=== PATIENT | male | born 1970 | race Caucasian/White ===

== ENCOUNTER → 2017-08-12 | Outpatient (CLI) | payer OTHER ==
[~2017-08-12] MED LIST: AMLO10 PO; ATEN25 PO; Ativan1 MG PO; CALMAGZIN PO; CLON.2 PO; HYDCHL25 PO; INDO50 PO; K-Dur 20 meq T20 MEQ PO; LEVSOD50; LEVSOD50 PO; METO100ER PO; METO25ER; MINO100 PO; MINO50 PO; MITIGARE0.6 MG PO; PENVK500 PO; POTCHL20ER PO; Percocet 7.5-31 EACH PO; SERT100 PO; SERT20L; SPIR25 PO
== END | disposition home or self-care (01) ==
LOC: LAB 08:00 → LAB SHORT 12:05
DX: S01.80XA Unspecified open wound of other part of head, initial encounter (principal); S81.802A Unspecified open wound, left lower leg, initial encounter
CPT/HCPCS: 87070; 87205

== ENCOUNTER 2021-08-13 09:38 | Day surgery (SDC) | payer OTHER | END 2021-08-13 12:50 | disposition home or self-care (01) | LOC: ORSCSDS 09:38 | PROVIDERS: Surgery | PROC: 0DBM8ZX Excision of Descending Colon, Via Natural or Artificial Opening Endoscopic, Diagnostic (ICD-10-PCS; principal; 2021-08-13 11:00) | PROC: 0DBL8ZX Excision of Transverse Colon, Via Natural or Artificial Opening Endoscopic, Diagnostic (ICD-10-PCS; principal; 2021-08-13 11:00) | DX: Z12.11 Encounter for screening for malignant neoplasm of colon (principal); Z86.010 Personal history of colon polyps; Z80.0 Family history of malignant neoplasm of digestive organs; D12.3 Benign neoplasm of transverse colon; D12.4 Benign neoplasm of descending colon; E03.9 Hypothyroidism, unspecified; E78.5 Hyperlipidemia, unspecified; Z79.899 Other long term (current) drug therapy | CPT/HCPCS: 88305; J2704; J7120 ==

== ENCOUNTER 2021-10-09 11:43 | Inpatient (IN) | payer OTHER ==
[~2021-10-09] VITALS: Ht 175.3 cm; Wt 89.6 kg
[2021-10-09] MEDS ORDERED: Pravastatin Sod40 MG PO (12:13)
[2021-10-09 12:16] LABS: BASOPHILS ABSOLUTE AUTO 0.06 K/mm3 (0.00-0.23); BASOPHILS PERCENT AUTO 1 % (0-2); EOSINOPHILS ABSOLUTE AUTO 0.08 K/mm3 (0.00-0.68); EOSINOPHILS PERCENT AUTO 1 % (0-6); Hematocrit 43.2 % (37.0-53.0); Hemoglobin 15.2 g/dL (13.5-17.5); IMMATURE GRAN ABSOLUTE AUTO 0.03 K/mm3 (0.00-0.10); IMMATURE GRAN PERCENT AUTO 0 % (0-1); LYMPHOCYTES ABSOLUTE AUTO 2.71 K/mm3 (0.84-5.20); LYMPHOCYTES PERCENT AUTO 38 % (21-46); MONOCYTES ABSOLUTE AUTO 0.62 K/mm3 (0.16-1.47); MONOCYTES PERCENT AUTO 9 % (4-13); Mean Corpuscular HGB 31.7 pg (26.0-34.0); Mean Corpuscular HGB Conc 35.2 g/dL (31.5-36.5); Mean Corpuscular Volume 90 fL (80-100); Mean Platelet Volume 9.1 fL (9.1-12.4); NEUTROPHILS ABSOLUTE AUTO 3.63 K/mm3 (1.96-9.15); NEUTROPHILS PERCENT AUTO 51 % (41-73); Platelet Count 342 K/mm3 (150-400); RDW Coefficient Variation 12.7 % (11.7-14.2); RDW Standard Deviation 41.6 fL (35.1-46.3); Red Blood Cell Count 4.79 M/mm3 (4.30-5.90); White Blood Cell Count 7.13 K/mm3 (4.00-11.30)
[2021-10-09 12:29] LABS: Albumin, Blood 4.1 g/dL (3.4-5.0); Albumin/Globulin Ratio 1.1 (0.8-1.8); Bilirubin, Total 0.3 mg/dL (0.1-1.0); Bun/Creatinine Ratio 9.8 (12.0-20.0); Calcium, Blood 8.8 mg/dL (8.5-10.1); Creatinine, Blood 0.71 mg/dL (0.60-1.20); Globulin, Blood 3.9 g/dL (2.2-4.0); Potassium, Blood 3.8 mmol/L (3.5-5.5)
[2021-10-09 12:51] LABS: Influenza A, PCR NEGATIVE (NEGATIVE); Influenza B, PCR NEGATIVE (NEGATIVE); Resp Syncytial Virus, PCR NEGATIVE (NEGATIVE); SARS-Cov-2 (COVID-19) PCR, MMC NEGATIVE (NEGATIVE)
[2021-10-09 13:49] LABS: BASOPHILS ABSOLUTE AUTO 0.04 K/mm3 (0.00-0.23); BASOPHILS PERCENT AUTO 1 % (0-2); EOSINOPHILS ABSOLUTE AUTO 0.08 K/mm3 (0.00-0.68); EOSINOPHILS PERCENT AUTO 1 % (0-6); IMMATURE GRAN ABSOLUTE AUTO 0.03 K/mm3 (0.00-0.10); IMMATURE GRAN PERCENT AUTO 0 % (0-1); LYMPHOCYTES ABSOLUTE AUTO 2.46 K/mm3 (0.84-5.20); LYMPHOCYTES PERCENT AUTO 35 % (21-46); MONOCYTES ABSOLUTE AUTO 0.63 K/mm3 (0.16-1.47); MONOCYTES PERCENT AUTO 9 % (4-13); Mean Corpuscular HGB 31.7 pg (26.0-34.0); Mean Corpuscular HGB Conc 35.6 g/dL (31.5-36.5); Mean Corpuscular Volume 89 fL (80-100); Mean Platelet Volume 9.3 fL (9.1-12.4); NEUTROPHILS ABSOLUTE AUTO 3.88 K/mm3 (1.96-9.15); NEUTROPHILS PERCENT AUTO 55 % (41-73); Platelet Count 328 K/mm3 (150-400); RDW Coefficient Variation 12.7 % (11.7-14.2); RDW Standard Deviation 41.5 fL (35.1-46.3); Red Blood Cell Count 5.04 M/mm3 (4.30-5.90); White Blood Cell Count 7.12 K/mm3 (4.00-11.30)
[2021-10-09 14:17] LABS: CPK Creatine Kinase 158 U/L (39-308)
[2021-10-09 14:39] LABS: Alanine Aminotransfer (ALT/SGP 37 U/L (12-78); Albumin, Blood 4.4 g/dL (3.4-5.0); Albumin/Globulin Ratio 1.1 (0.8-1.8); Alk Phos 78 U/L (50-136); Anion Gap 13 mmol/L (6-16); Aspartate Aminotrans (AST/SGOT 31 U/L (12-37); Bilirubin, Total 0.3 mg/dL (0.1-1.0); Blood Urea Nitrogen 6 mg/dL (8-24); Bun/Creatinine Ratio 8.7 (12.0-20.0); CO2, Blood 22 mmol/L (21-32); Calcium, Blood 9.1 mg/dL (8.5-10.1); Chloride, Blood 101 mmol/L (98-108); Creatine Kinase MB <1.0 ng/mL (0.0-3.6); Creatine Kinase MB Index Unable to Calculate (0.0-4.0); Creatinine, Blood 0.69 mg/dL (0.60-1.20); Globulin, Blood 4.1 g/dL (2.2-4.0); Glomerular Filtration Rate 112 (60-); Glucose, Blood 234 mg/dL (70-99); Potassium, Blood 3.6 mmol/L (3.5-5.5); Sodium, Blood 136 mmol/L (136-145); Total Protein, Blood 8.5 g/dL (6.4-8.2)
--- NOTE | 2021-10-09 19:00 | NUR ---
Assumed care. Report received from sea RN. Pt resting in bed ATT. On room air, IV access in R/ac and L/hand. Pt denies chest pain/SOB/nausea. No acute needs, will continue to monitor.
--- NOTE | 2021-10-09 19:10 | NUR ---
SUMMARY NEURO: WNL GI: WNL. HX UMBILICAL HERNIA : WNL LUNGS: WNL CARDIAC: STENT PLACED IN DISTAL RCA. PT HAD COMPLAINTS OF SOB AND CLAMMINESS DURING POST OP EKG. DR HERNANDEZ TO BEDSIDE, EKG NOTED TO HAVE ST ELEVATION. SUBLINGUAL NITRO GIVEN, 5MG IV METOPROLOL PUSH GIVEN, REPEAT EKG. 200ML NS FLUID BOLUS GIVEN FLLOWED [id number]/ HR INFUSION, REPEATED EKG. AGROSTAT BOLUS GIVEN FLLOWED BY INFUSION, REPEATED EKG. PT STATES SYMPTOMS HAVE IMPROVED SINCE INTERVENTION, DECREASED IN ST ELEVATION NOTED ON REPEATED EKG'S. TROPONINS STILL TRENDING UP. TR BAND IN PLACE DUE TO INCREASED BLEEDING RISK. SKIN; WNL
[2021-10-10 03:45] LABS: BASOPHILS ABSOLUTE AUTO 0.03 K/mm3 (0.00-0.23); BASOPHILS PERCENT AUTO 0 % (0-2); EOSINOPHILS ABSOLUTE AUTO 0.03 K/mm3 (0.00-0.68); EOSINOPHILS PERCENT AUTO 0 % (0-6); Hematocrit 39.2 % (37.0-53.0); Hemoglobin 13.7 g/dL (13.5-17.5); IMMATURE GRAN ABSOLUTE AUTO 0.03 K/mm3 (0.00-0.10); IMMATURE GRAN PERCENT AUTO 0 % (0-1); LYMPHOCYTES ABSOLUTE AUTO 1.69 K/mm3 (0.84-5.20); LYMPHOCYTES PERCENT AUTO 21 % (21-46); MONOCYTES ABSOLUTE AUTO 0.75 K/mm3 (0.16-1.47); MONOCYTES PERCENT AUTO 10 % (4-13); Mean Corpuscular HGB 31.1 pg (26.0-34.0); Mean Corpuscular HGB Conc 34.9 g/dL (31.5-36.5); Mean Corpuscular Volume 89 fL (80-100); Mean Platelet Volume 9.1 fL (9.1-12.4); NEUTROPHILS ABSOLUTE AUTO 5.35 K/mm3 (1.96-9.15); NEUTROPHILS PERCENT AUTO 68 % (41-73); Platelet Count 215 K/mm3 (150-400); RDW Coefficient Variation 12.7 % (11.7-14.2); RDW Standard Deviation 41.5 fL (35.1-46.3); White Blood Cell Count 7.88 K/mm3 (4.00-11.30)
[2021-10-10 04:03] LABS: Bun/Creatinine Ratio 7.7 (12.0-20.0); Calcium, Blood 8.3 mg/dL (8.5-10.1); Creatinine, Blood 0.65 mg/dL (0.60-1.20); Potassium, Blood 3.7 mmol/L (3.5-5.5)
--- NOTE | 2021-10-10 06:26 | NUR ---
Shift summary. Pt rested in bed throughout shift. No acute changes overnight. EKG sent to Dr. Aceevdo per nursing order. Aggrastat running at 16.1 ml/hr. Vital signs stable throughout shift, see assessment for further details. Will continue to monitor and report off to dayshift RN.
--- NOTE | 2021-10-10 18:20 | NUR ---
SUMMARY AGROSTAT WAS TURNED OFF AT 10AM. NO SWELLING, OR SIGNS OF BLEEDING AT ACCESS SITE. PT UP AND WALKING AROUND UNIT WITHOUT SOB OR CHEST PAIN.
--- NOTE | 2021-10-10 19:00 | NUR ---
Assumed care. Report received from dayshift RN. Pt resting in bed ATT, at bedside. Alert and oriented, on room air, vs stable. Pt denies chest pain/SOB/nausea. Will continue to monitor.
[2021-10-11 03:26] LABS: BASOPHILS ABSOLUTE AUTO 0.03 K/mm3 (0.00-0.23); BASOPHILS PERCENT AUTO 0 % (0-2); EOSINOPHILS ABSOLUTE AUTO 0.11 K/mm3 (0.00-0.68); EOSINOPHILS PERCENT AUTO 2 % (0-6); Hematocrit 39.3 % (37.0-53.0); Hemoglobin 13.7 g/dL (13.5-17.5); IMMATURE GRAN ABSOLUTE AUTO 0.02 K/mm3 (0.00-0.10); IMMATURE GRAN PERCENT AUTO 0 % (0-1); LYMPHOCYTES ABSOLUTE AUTO 1.47 K/mm3 (0.84-5.20); LYMPHOCYTES PERCENT AUTO 21 % (21-46); MONOCYTES ABSOLUTE AUTO 0.66 K/mm3 (0.16-1.47); MONOCYTES PERCENT AUTO 10 % (4-13); Mean Corpuscular HGB 31.7 pg (26.0-34.0); Mean Corpuscular HGB Conc 34.9 g/dL (31.5-36.5); Mean Corpuscular Volume 91 fL (80-100); Mean Platelet Volume 9.2 fL (9.1-12.4); NEUTROPHILS PERCENT AUTO 67 % (41-73); Platelet Count 189 K/mm3 (150-400); RDW Coefficient Variation 12.7 % (11.7-14.2); RDW Standard Deviation 41.8 fL (35.1-46.3); Red Blood Cell Count 4.32 M/mm3 (4.30-5.90); White Blood Cell Count 6.89 K/mm3 (4.00-11.30)
[2021-10-11 03:49] LABS: Albumin, Blood 3.5 g/dL (3.4-5.0); Bilirubin, Total 0.9 mg/dL (0.1-1.0); Bun/Creatinine Ratio 6.5 (12.0-20.0); Creatinine, Blood 0.76 mg/dL (0.60-1.20); Globulin, Blood 3.4 g/dL (2.2-4.0); Potassium, Blood 3.5 mmol/L (3.5-5.5); Total Protein, Blood 6.9 g/dL (6.4-8.2)
--- NOTE | 2021-10-11 06:30 | NUR ---
Shift summary. Pt rested in bed throughout the night, no acute events. Order obtained for melatonin to help with sleep. VS stable, see shift assessment for further details. Will continue to monitor and report off to dayshift RN.
[2021-10-11] MEDS ORDERED: ATOR80 PO (10:16)
[2021-10-11] MEDS ORDERED: ASPI81CH PO (10:17)
[2021-10-11] MEDS ORDERED: LISI5 PO (10:18)
[2021-10-11] MEDS ORDERED: EZET10 PO (10:18)
[2021-10-11] MEDS ORDERED: Nicoderm Cq1 EAC1 TOP (10:19)
[2021-10-11] MEDS ORDERED: TICA90TA PO (10:19)
[2021-10-11] MEDS ORDERED: ONDA4 PO (10:19)
[2021-10-11] MEDS ORDERED: JARDIANCE10 MG PO (10:20)
[2021-10-11] MEDS ORDERED: METF500 PO (10:20)
[2021-10-11] MEDS ORDERED: Naltrexone HCl50 MG PO (10:21)
[2021-10-11] MEDS ORDERED: METO50ER PO (10:22)
[2021-10-11] MEDS ORDERED: PANT40 PO (10:22)
--- NOTE | 2021-10-11 11:30 | NUR ---
ASSUMED CARE/DISCHARGE REPORT FROM ROSEMARIE AGUILAR AT 0700. PT RESTING IN BED. DENIES CHEST PAIN, SOB OR OTHER SYMPTOMS. A&OX 3. ANSWERS QUESTIONS APPROPRIATELY. LUNGS CLEAR. SB ON MONITOR. BP STABLE. RIGHT RADIAL ACCESS SITE WNL. INDEPENDENT IN ROOM. DR DURHAM AT BEDSIDE FOR D/C. PT TO F/U c PCP IN ONE WEEK (APPT SCHEDULED) CARDIOLOGY IN2 WEEKS, PT WILL SCHEDULE. VERBALIZED UNDERSTANDING OF D/C INSTRUCTIONS. IV'S REMOVED. AMB OUT OF DEPARTMENT. ALL BELONGINGS SENT c PT.
== END 2021-10-11 12:00 | disposition home or self-care (01) | DRG 247 ==
LOC: ER 11:43 → ICUE 12:13 → ICUW 12:13 → ICUE 13:30
PROVIDERS: Family Medicine; Physician Assistant; Student in an Organized Health Care Education/Training Program; ADMIT Internal Medicine Interventional Cardiology
PROC: 027034Z Dilation of Coronary Artery, One Artery with Drug-eluting Intraluminal Device, Percutaneous Approach (ICD-10-PCS; principal; 2021-10-09)
PROC: B2111ZZ Fluoroscopy of Multiple Coronary Arteries using Low Osmolar Contrast (ICD-10-PCS; 2021-10-09)
PROC: B2151ZZ Fluoroscopy of Left Heart using Low Osmolar Contrast (ICD-10-PCS; 2021-10-09)
PROC: B24BZZ3 Ultrasonography of Heart with Aorta, Intravascular (ICD-10-PCS; 2021-10-09)
PROC: 4A023N7 Measurement of Cardiac Sampling and Pressure, Left Heart, Percutaneous Approach (ICD-10-PCS; 2021-10-09)
DX: I21.19 ST elevation (STEMI) myocardial infarction involving other coronary artery of inferior wall (principal); F17.223 Nicotine dependence, chewing tobacco, with withdrawal; I10 Essential (primary) hypertension; Z20.822 Contact with and (suspected) exposure to COVID-19; E78.5 Hyperlipidemia, unspecified; E03.9 Hypothyroidism, unspecified; F32.A Depression, unspecified; F10.20 Alcohol dependence, uncomplicated; I25.10 Atherosclerotic heart disease of native coronary artery without angina pectoris; F41.9 Anxiety disorder, unspecified; E11.59 Type 2 diabetes mellitus with other circulatory complications; Z90.49 Acquired absence of other specified parts of digestive tract; Z98.890 Other specified postprocedural states; Z79.899 Other long term (current) drug therapy
CPT/HCPCS: 0241U; 36415; 71045; 76937; 80048; 80053; 82550; 82553; 82947; 83036; 83690; 83880; 84484; 85025; 85347; 93005; 93010; 93306; 93458; 96374; 99152; 99153; 99285-25; A9270; C1725; C1769; C1874; C1887; C1894; C9600; C9606; J0461; J1644; J1650; J2250; J3010; J3246; J7030; J7040; Q9967

== ENCOUNTER 2024-05-24 11:57 | Emergency (ER) | payer OTHER ==
[~2024-05-24] VITALS: Ht 175.3 cm; Wt 85.7 kg
[~2024-05-24 11:57] MED LIST changes: +ASPI81CH PO; +ATOR80 PO; +EZET10 PO; +JARDIANCE10 MG PO; +LISI5 PO; +METF500 PO; +METO50ER PO; +Naltrexone HCl50 MG PO; +Nicoderm Cq1 EAC1 TOP; +ONDA4 PO; +PANT40 PO; +Pravastatin Sod40 MG PO; +TICA90TA PO
[2024-05-24 13:09] LABS: BASOPHILS ABSOLUTE AUTO 0.04 K/mm3 (0.00-0.23); BASOPHILS PERCENT AUTO 1 % (0-2); EOSINOPHILS ABSOLUTE AUTO 0.08 K/mm3 (0.00-0.68); EOSINOPHILS PERCENT AUTO 2 % (0-6); Hematocrit 46.1 % (37.0-53.0); Hemoglobin 16.6 g/dL (13.5-17.5); IMMATURE GRAN ABSOLUTE AUTO 0.02 K/mm3 (0.00-0.10); IMMATURE GRAN PERCENT AUTO 0 % (0-1); LYMPHOCYTES ABSOLUTE AUTO 1.39 K/mm3 (0.84-5.20); LYMPHOCYTES PERCENT AUTO 26 % (21-46); MONOCYTES ABSOLUTE AUTO 0.64 K/mm3 (0.16-1.47); MONOCYTES PERCENT AUTO 12 % (4-13); Mean Corpuscular HGB 35.2 pg (26.0-34.0); Mean Corpuscular Volume 98 fL (80-100); Mean Platelet Volume 8.7 fL (9.1-12.4); NEUTROPHILS PERCENT AUTO 60 % (41-73); Platelet Count 225 K/mm3 (150-400); RDW Coefficient Variation 12.8 % (11.7-14.2); RDW Standard Deviation 46.1 fL (35.1-46.3); Red Blood Cell Count 4.72 M/mm3 (4.30-5.90); White Blood Cell Count 5.37 K/mm3 (4.00-11.30)
[2024-05-24 13:30] LABS: Free Thyroxine 0.95 ng/dL (0.70-1.60); Magnesium, Blood 1.8 mg/dL (1.6-2.4)
[2024-05-24 13:32] LABS: Bun/Creatinine Ratio 4.9 (12.0-20.0); Calcium, Blood 9.1 mg/dL (8.5-10.1); Creatinine, Blood 0.82 mg/dL (0.60-1.20); Potassium, Blood 3.8 mmol/L (3.5-5.5); Thyroid Stimulating Hormone 1.22 uIU/mL (0.360-4.800)
[2024-05-24 16:30] VITALS: BP 167/110
== END 2024-05-24 17:18 | disposition home or self-care (01) ==
LOC: ER 11:57
PROVIDERS: Emergency Medicine
DX: I16.0 Hypertensive urgency (principal); I10 Essential (primary) hypertension; R33.9 Retention of urine, unspecified; R00.0 Tachycardia, unspecified; I25.2 Old myocardial infarction; E03.9 Hypothyroidism, unspecified; Z87.891 Personal history of nicotine dependence; Z79.84 Long term (current) use of oral hypoglycemic drugs; Z79.899 Other long term (current) drug therapy
CPT/HCPCS: 51798; 71045; 74177; 80048; 83735; 84439; 84443; 84484; 85025; 93005; 93010; 99284-25; Q9967